=== PATIENT | male | born 1960 | race Caucasian/White ===

== ENCOUNTER → 2017-11-09 | Outpatient (CLI) | payer OTHER ==
[~2017-11-09] MED LIST: AUGMENTIN 875875 M1 PO; BENTYL 20 MG TA20 M1; CARAFATE 11 GM/10 M1 PO; DITROPAN XL10 M1; NOHOMEMEDICATIONS; OMEPRAZOLE20 M2; SENNA S TABLET1 EACH PO; TAMSULOSIN HCL0.4 MG
== END ==
LOC: M.RAD 15:37
DX: K59.00 Constipation, unspecified (principal); K21.9 Gastro-esophageal reflux disease without esophagitis

== ENCOUNTER → 2018-04-14 | Outpatient (CLI) | payer OTHER ==
[2018-04-14 08:33] LABS: CREATININE 1.1 mg/dL (0.6-1.3)
== END ==
LOC: M.LAB 07:57 → M.CT 09:30
PROVIDERS: Family Medicine
DX: K42.9 Umbilical hernia without obstruction or gangrene (principal); R10.9 Unspecified abdominal pain; Z98.890 Other specified postprocedural states